=== PATIENT | male | born 1955 | race Caucasian/White ===

== ENCOUNTER 2019-11-05 00:43 | Inpatient (IN) ==
[2019-11-05] MEDS ORDERED: ONDANSETRON 4 MG/2 ML VIAL IV PRN (02:34)
[2019-11-05] MEDS ORDERED: SODIUM CHLORIDE 0.9% 1,000 ML IV PRN ×2 (02:39→15:15)
[2019-11-05] MEDS: SODIUM CHLORIDE 0.9% 1,000 ML IV SCH ×2 (03:51→16:19)
[2019-11-05 04:25] LABS: Hematocrit 18.9 VOL% (42.0-52.0)
[2019-11-05 04:27] LABS: Hemoglobin 5.4 GM/DL (14.0-18.0)
[2019-11-05 04:49] LABS: Albumin 2.6 G/DL (3.4-5.0); Bilirubin,Total 1.1 MG/DL (0.2-1.0); Calcium 7.7 MG/DL (8.5-10.1); Osmolality,Calculated 284.4 MOS/KG (273-304); Total Protein 5.1 G/DL (6.4-8.3)
[2019-11-05 09:06] LABS: Eosinophils % 0.5 % (0.00-10.9); Hematocrit 18.1 VOL% (42.0-52.0); Immature Granulocytes % 0.5 %; Immature Granulocytes Absolute 0.01 #; Lymphocytes # 0.3 10*3/uL (1.4-4.0); Lymphocytes % 15.3 % (21.2-54.2); Mean Corpuscular HGB Conc 30.4 GM/DL (32-36); Mean Corpuscular Volume 78.4 FL (87-102); Mean Platelet Volume 11.6 FL (9.6-12.0); Monocytes % 10.4 % (1.7-12.7); Neutrophils % 73.3 % (38.7-73.9); Red Blood Count 2.31 MC/CUMM (3.8-5.5); Red Cell Distribution Width 17.2 % (9.3-17.3); White Blood Count 1.8 T/CUMM (4-12)
[2019-11-05] MEDS: PANTOPRAZOLE 40 MG VIAL IV SCH ×2 (09:16→22:04)
[2019-11-05 09:18] LABS: Hemoglobin 5.5 GM/DL (14.0-18.0)
[2019-11-05 09:19] LABS: Platelet Count 36 T/CUMM (130-400)
[2019-11-05 09:26] LABS: INR 1.3; PT Patient Result 13.6 SECS (9.6-12.2)
[2019-11-05 10:13] LABS: Anisocytosis 2+; Band Neutrophils 11 % (0-10); Eosinophils 1 % (0-10); Hypochromasia 1+; Lymphocytes 8 % (20-55); Platelet Estimate Decreased; Poikilocytosis Slight; Segmented Neutrophils 73 % (50-85); Total Cells Counted 100
[2019-11-05] MEDS ORDERED: OCTREOTIDE 100 MCG/ML SYRINGE IV ONE (10:30)
[2019-11-05] MEDS: OCTREOTIDE 500 MCG in SODIUM CHLORIDE 0.9% 100 ML IV SCH ×2 (10:43→22:03)
[2019-11-05] MEDS ORDERED: DEXTROSE 10% 250 ML BAG IV PRN (12:44)
[2019-11-05] MEDS ORDERED: GLUCAGON 1 MG VIAL IM PRN (12:44)
[2019-11-05 13:46] LABS: Folate 5.2 NG/ML (5.4-24.0)
[2019-11-05] MEDS ORDERED: LIDOCAINE 2% 5 ML VIAL ONE (13:54)
[2019-11-05] MEDS ORDERED: propofoL 200 MG/20 ML VIAL IV ONE (13:54)
[2019-11-05 14:44] LABS: Eosinophils % 1.5 % (0.00-10.9); Immature Granulocytes % 0.8 %; Immature Granulocytes Absolute 0.01 #; Lymphocytes # 0.2 10*3/uL (1.4-4.0); Lymphocytes % 17.7 % (21.2-54.2); Mean Corpuscular HGB Conc 29.5 GM/DL (32-36); Mean Corpuscular Volume 82.2 FL (87-102); Mean Platelet Volume 11.3 FL (9.6-12.0); Monocytes % 11.5 % (1.7-12.7); Neutrophils % 68.5 % (38.7-73.9); Red Blood Count 2.14 MC/CUMM (3.8-5.5); Red Cell Distribution Width 17.9 % (9.3-17.3); White Blood Count 1.3 T/CUMM (4-12)
[2019-11-05 14:54] LABS: Hemoglobin 5.2 GM/DL (14.0-18.0)
[2019-11-05 14:55] LABS: Hematocrit 17.6 VOL% (42.0-52.0); Platelet Count 33 T/CUMM (130-400)
[2019-11-05] MEDS ORDERED: SODIUM CHLORIDE 0.9% 1,000 ML IV SCH (15:00)
[2019-11-05] MEDS ORDERED: FUROSEMIDE 20 MG/2 ML VIAL IV ONE (15:30)
[2019-11-05 16:06] LABS: Eosinophils 4 % (0-10); Hypochromasia 2+; Lymphocytes 32 % (20-55); Microcytosis 1+; Ovalocytes 1+; Segmented Neutrophils 52 % (50-85); Total Cells Counted 100
[2019-11-05 16:07] LABS: Anisocytosis 1+; Platelet Estimate Decreased; Polychromasia 1+
[2019-11-05] MEDS: INSULIN REGULAR 100 UNIT/ML SUBCUT SCH ×2 (17:17→22:04)
[2019-11-05] MEDS: LACTULOSE 20 GM/30 ML UDCUP PO SCH ×2 (17:17→22:04)
[2019-11-06] MEDS ORDERED: LORazepam 2 MG/1 ML VIAL ONE ×2 (01:54→04:37)
[2019-11-06 05:15] LABS: Basophils % 0.7 % (0.0-0.8); Eosinophils % 2.2 % (0.00-10.9); Hematocrit 21.6 VOL% (42.0-52.0); Hemoglobin 6.6 GM/DL (14.0-18.0); Lymphocytes # 0.3 10*3/uL (1.4-4.0); Lymphocytes % 21.5 % (21.2-54.2); Mean Corpuscular HGB Conc 30.6 GM/DL (32-36); Mean Corpuscular Volume 83.4 FL (87-102); Mean Platelet Volume 12.7 FL (9.6-12.0); Monocytes % 10.4 % (1.7-12.7); Neutrophils % 65.2 % (38.7-73.9); Platelet Count 40 T/CUMM (130-400); Red Blood Count 2.59 MC/CUMM (3.8-5.5); White Blood Count 1.4 T/CUMM (4-12)
[2019-11-06] MEDS ORDERED: SODIUM CHLORIDE 0.9% 500 ML IV ONE (05:30)
[2019-11-06 05:33] LABS: Calcium 7.6 MG/DL (8.5-10.1); Osmolality,Calculated 287.1 MOS/KG (273-304)
[2019-11-06] MEDS ORDERED: POTASSIUM CHLORIDE RIDER 20 MEQ in PREMIX 1 EACH IV PRN (06:26)
[2019-11-06] MEDS ORDERED: POTASSIUM CHLORIDE RIDER 10 MEQ in PREMIX 1 EACH IV PRN (06:26)
[2019-11-06] MEDS ORDERED: MAGNESIUM SULF RIDER 2 GM in PREMIX 1 EACH IV PRN (06:27)
[2019-11-06] MEDS ORDERED: SODIUM CHLORIDE 0.9% 1,000 ML IV PRN ×2 (06:38→10:03)
[2019-11-06 06:43] LABS: Anisocytosis 1+; Band Neutrophils 4 % (0-10); Eosinophils 1 % (0-10); Lymphocytes 18 % (20-55); Ovalocytes Few; Platelet Estimate Decreased; Poikilocytosis Slight; Segmented Neutrophils 70 % (50-85); Total Cells Counted 100
[2019-11-06 06:44] LABS: Hypochromasia 1+
[2019-11-06] MEDS: INSULIN REGULAR 100 UNIT/ML SUBCUT SCH ×2 (06:59→11:35)
[2019-11-06] MEDS: OCTREOTIDE 500 MCG in SODIUM CHLORIDE 0.9% 100 ML IV SCH (07:43)
[2019-11-06] MEDS: LACTULOSE 20 GM/30 ML UDCUP PO SCH (08:06)
[2019-11-06] MEDS: PANTOPRAZOLE 40 MG VIAL IV SCH (08:06)
[2019-11-06] MEDS ORDERED: ACETAMINOPHEN 325 MG TABLET PO PRN (10:24)
[2019-11-06 13:40] VITALS: BP 103/51
== END 2019-11-06 14:15 | disposition hospice, home (50) | DRG 300 ==
LOC: N.ICU 02:05 → SUATTDRO 02:05
PROVIDERS: ADMIT Internal Medicine; ATTEND Internal Medicine